=== PATIENT | male | born 1955 | race Caucasian/White ===

== ENCOUNTER 2023-10-27 10:01 | Outpatient (CLI) | payer MEDICARE, BC, SELFPAY ==
--- NOTE | ~2023-10-27 | XR_ITS ---
EXAMINATION: SCOLIOSIS DATE: 10/27/2023 10:24 INDICATION: Lumbar radiculopathy TECHNIQUE: Standing AP and lateral views of the thoracolumbar spine FINDINGS: The patient is in a brace. There are 12 rib bearing thoracic vertebral bodies and 5 non-rib bearing lumbar type vertebral bodies. Alignment is normal. No vertebral body anomaly is identified. There are changes of posterior fusion from L2 through the sacrum. There is an oblique fracture in the posterior/superior endplate of L2. There are bridging osteophytes at multiple levels in the spine, c onsistent with diffuse idiopathic skeletal hyperostosis (DISH). There is no measurable curvature of t he spine. IMPRESSION: 1. No measurable curvature of the spine. 2. Oblique fracture in the posterior/superior endplate of L2. 3. Changes of posterior fusion from L2 through the sacrum. Reviewed, dictated and finalized at location L. [employer]
== END 2023-10-27 10:02 | disposition home or self-care (01) ==
LOC: ANHASCIMG 10:05
PROVIDERS: PCP Internal Medicine
DX: S32.028A Other fracture of second lumbar vertebra, initial encounter for closed fracture (principal); M43.27 Fusion of spine, lumbosacral region; X58.XXXA Exposure to other specified factors, initial encounter
CPT/HCPCS: 72082